=== PATIENT | female | born 1985 | race Caucasian/White ===

== ENCOUNTER 2019-04-17 18:03 | Observation (INO) | payer BC, SELFPAY ==
[2019-04-17 18:04] VITALS: BP 111/70; PULSE 89; RESP 18; TEMP 36.7; O2SAT 98; BMI 27.1
--- NOTE | 2019-04-17 18:34 | CT_ITS ---
We are attempting to reach an attending provider to discuss findings. An addendum with communication details will be sent when the communication is complete. STUDY: CT ABDOMEN AND PELVIS WITH CONTRAST REASON FOR EXAM: Female, 33 years old. Right lower quadrant pain RADIATION DOSAGE (If Supplied By Facility): DLP = ( 1245.90 ) mGycm TECHNIQUE: Transaxial images were obtained from the dome of the diaphragm to the symphysis pubis without oral contrast. 100 ml of Isovue 300 contrast was administered. Sagittal and coronal images were reconstructed. Individualized dose optimization techniques were used for this CT. COMPARISON: None. FINDINGS: The visualized lung bases are clear. The visualized portions of the heart and pericardium are within normal limits. There are no calcified gallstones present. The liver is within normal limits. There are no suspicious hepatic lesions. The spleen is normal in size. The pancreas is within normal limits. The adrenal glands are within normal limits. There are no obstructing renal stones. There is a left renal upper pole 2 mm stone and left renal midpole 3 mm stone. There is no hydronephrosis. There are no focal renal lesions. Normal visualized stomach. There is no bowel obstruction or inflammation. The appendix is increased in diameter, measuring 1.1 cm in diameter. There is appendiceal wall thickening and adjacent inflammatory changes. There is no evidence of rupture. The aorta is normal in caliber. There is no abdominal or pelvic free air, fluid collection or lymphadenopathy. Mild free fluid is present. There are no destructive osseous lesions. CT/Abdomen/Pelvis W IV Cont ONLY IMPRESSION: Acute appendicitis without evidence of rupture. Nonobstructing left renal stones. Mild free fluid. Electronically Signed: Fernando Gamez, at 20:29 EST Tel , Service support ,
[2019-04-17] MEDS: 0.9% Normal Saline 1,000 ML 1000 ML IV (19:03)
[2019-04-17 19:17] LABS: Absolute Lymphocyte Count 2.37 X10^3/uL (0.83-4.51); Absolute Neutrophil Count 11.1 X10^3/uL (2.0-7.7); Basophil# 0.04 X10^3/uL; Basophil% 0.3 % (0-1); Eosinophil# 0.05 X10^3/uL; Eosinophils% 0.3 % (0-5); Hematocrit 36.4 % (37-47); Hemoglobin 12.6 g/dL (12.0-15.0); Lymphocyte # 2.37 X10^3/ul (4.0); Lymphocyte % 16.3 % (19-41); Mean Corp Hgb Conc 34.6 g/dL (32-36); Mean Corpuscular Hgb 29.4 pg (27.0-32.0); Mean Corpuscular Volume 84.8 fL (81-99); Mean Platelet Vol. 9.3 fl (6.2-12.0); Monocyte# 0.97 X10^3/uL; Monocyte% 6.7 % (0-10); NRBC Flagged by Analyzer 0 % (0-5); Neutrophil # 11.05 X10^3/uL (2.7-7.7); Neutrophil % 76.1 % (47-70); Platelet Count 226 K/mm3 (150-450); RBC Distribution Width CV 11.8 % (11.6-14.6); Red Blood Count 4.29 M/mm3 (4.2-5.4); White Blood Count 14.5 K/mm3 (4.4-11.0)
[2019-04-17 19:18] LABS: Bacteria 0 SEEN /hpf (None Seen); Mucous, Urine 0 SEEN /hpf (<or=2+); Red Blood Cells-Urine 0 SEEN /hpf (0-5)
[2019-04-17 19:19] LABS: ALB/GLOB Ratio 1.1 RATIO (0.9-2.4); AST(SGOT) 7 U/L (15-37); Alanine Aminotransfer ALT/SGPT 15 U/L (13-56); Albumin, Serum 4.1 g/dL (3.2-5.0); Alkaline Phosphatase 57 U/L (45-117); Anion Gap 6 (5-15); BUN 11 mg/dL (7-18); BUN/Creat Ratio 15.9 RATIO (10-20); Calcium,Total 9.1 mg/dL (8.5-10.1); Chloride 105 mmol/L (98-107); Creatinine, Serum 0.69 mg/dL (0.55-1.02); EST Glomerular Filtration Rate 105 mL/min (>60); Est Glom Filt Rate - Afr Amer 127 mL/min (>60); Estimated Creatinine Clearance 93.43 ml/min; Globulin 3.7 g/dL (2.2-4.2); Glucose 91 mg/dL (74-106); Lipase 77 U/L (73-393); Potassium 3.2 mmol/L (3.5-5.1); Protein, Total 7.8 g/dL (6.4-8.2); Sodium Level 140 mmol/L (136-145)
[2019-04-17 19:22] LABS: Color, Urine Yellow (Yellow); Glucose, Dipstick Normal (Normal); Ketone-Dipstick Negative (Negative); Leukocyte Esterase-Dipstick 25 /ul (Negative); Nitrite-Dipstick Negative (Negative); Occult Blood-Urine Negative /ul (Negative); Protein-Dipstick Negative (Negative); Urine Bilirubin Dipstick Negative (Negative); Urine Clarity Sl. Cloudy (Clear); Urine Urobilinogen Normal (Normal)
[2019-04-17 19:29] LABS: Internal QC Validated? YES +Cl - CLEAR BKGD; Pregnancy, Urine Negative Negative
[2019-04-17 19:33] LABS: Squamous Epithelial Cells - UA 0-5 SEEN /hpf (5-10); White Blood Cells 0-5 SEEN /hpf (0-5)
[2019-04-17 20:32] VITALS: BP 97/61; PULSE 68; RESP 15; O2SAT 98
--- NOTE | 2019-04-17 20:42 | ED.VISSUMM ---
- ER Visit Summary Date of Service: 04/17/19 Chief Complaint: Abdominal pain History of Present Illness: The patient is a 33 F with abdominal pain that started yesterday. It was diffuse and then moved to her right lower quadrant. It is worse with bending and moving. She felt a little lightheaded today. Last oral intake was around 2 PM today. No history of abdominal surgery. She does have a history of ovarian cysts, and this feels similar. Physical Examination: Afebrile and vital signs unremarkable. Alert and oriented. No acute distress. Heart regular. Lungs clear. Right lower quadrant and right pelvis tender to palpation. No guarding or rebound. Skin appears normal. Test Results: White count 14.5, potassium 3.2, hepatic and lipase unremarkable. Urinalysis unremarkable. hCG is negative. CT abdomen and pelvis showed acute appendicitis without complication. Emergency Department Course and Treatment: Patient declined pain medicine. Work-up was consistent with acute appendicitis. She was treated with Zosyn. She is stable on reevaluation. Surgery was contacted for further care. Treatment Plan: As above Disposition: Admission Impression: Acute appendicitis This note was generated with [employer] dictation software. It may contain incorrect words, spelling, and punctuation that were not noted in review of the chart prior to signing ED Disposition - Plan for ED Patient: Referrals: Jenny Garcia MD [Primary Care Provider] -
--- NOTE | 2019-04-17 21:40 | PCM.HP.STD ---
Problem List (1) Acute appendicitis Status: Acute Qualifiers: Acute appendicitis type: with localized peritonitis Appendicitis perforation presence: without perforation Appendicitis abscess presence: without abscess History of Present Illness Date of Admission: 04/17/19 The patient is a 33 year old F who became ill yesterday with generalized abdominal pain. I been contacted by emergency room Dr Gonzalez to assume care of the patient. Patient's primary care physician is in the [place]. The patient's got an elevated white count of 14.5 with a hemo-12.6 hematocrit 36.4 platelet count 226,000. Left shift with 76% neutrophils. CT scan demonstrates a markedly inflamed appendix measuring 1.1 cm in diameter. There is free fluid noted. There is periappendiceal stranding. They do not at this point see free rupture.. She has not had any abdominal surgery. Past Medical History Allergies No Known Allergies Allergy (Verified 04/17/19 18:07) Home Medications: Ambulatory Orders Medication Instructions Recorded Ibuprofen 400 mg PO DAILY PRN PRN 04/17/19 Smoking Status: Never smoker Review of Systems Constitutional: Denies: Anorexia HEENT: Denies: Difficulty Swallowing Respiratory: Denies: Cough Gastrointestinal: Reports: Abdominal Pain VTE Information - Inpt Only VTE Present on Admission: No Patient Problems: Active and Suspected Problems Acute appendicitis (Acute) - Physical Exam Vitals/I&O's: Vital Signs Temp Pulse Resp BP Pulse Ox 98.0 F 68 15 97/61 98 04/17/19 18:04 04/17/19 20:32 04/17/19 20:32 04/17/19 20:32 04/17/19 20:32 Oxygen Delivery Method Room Air Weight: 148 lb Body Mass Index (BMI) 27.1 Intake and Output for Last 24 Hours 04/15/19 04/16/19 04/17/19 23:59 23:59 23:59 Intake Total 1000 / 1000 Balance 1000 / 1000 General: Alert, Oriented x3, Cooperative, No apparent distress HEENT: Atraumatic Oral: Moist Mucosa Neck: Supple Lungs: Clear to auscultation, Normal air movement Cardiovascular: Regular rate, Regular Rhythm Abdomen: Soft, Hypoactive Bowel Sounds, Tender, - - Tender to palpation with guarding right lower quadrant Extremities: No Calf Tenderness Neurological: - - Cognition intact Psych/Mental Status: Normal Affect Laboratory Results 04/17/19 18:47: WBC 14.5 H, RBC 4.29, Hgb 12.6, Hct 36.4 L, MCV 84.8, MCH 29.4, MCHC 34.6, RDW Std Deviation 36.0, RDW Coeff of Jannie 11.8, Plt Count 226, MPV 9.3, Immature Gran % (Auto) 0.300, Neut % (Auto) 76.1 H, Lymph % (Auto) 16.3 L, [place] % (Auto) 6.7, Eos % (Auto) 0.3, Baso % (Auto) 0.3, Absolute Neuts (auto) 11.1 H, Absolute Lymphs (auto) 2.37, Nucleated RBC % 0 04/17/19 18:47: Sodium 140, Potassium 3.2 L, Chloride 105, Carbon Dioxide 29.0, Anion Gap 6, BUN 11, Creatinine 0.69, Estim Creat Clear Calc 93.43, Est GFR (MDRD) Af Amer 127, Est GFR (MDRD) Non-Af 105, BUN/Creatinine Ratio 15.9, Glucose 91, Calcium 9.1, Total Bilirubin 0.60, AST 7 L, ALT 15, Alkaline Phosphatase 57, Total Protein 7.8, Albumin 4.1, Globulin 3.7, Albumin/Globulin Ratio 1.1, Lipase 77 04/17/19 19:10: Urine Test Negative 04/17/19 19:10: Urine Color Yellow, Urine Clarity Sl. Cloudy, Urine pH 6.0, Ur Specific [place] 1.010, Urine Protein Negative, Urine Glucose (UA) Normal, Urine Ketones Negative, Urine Occult Blood Negative, Urine Nitrite Negative, Urine Bilirubin Negative, Urine Urobilinogen Normal, Ur Leukocyte Esterase 25 H, Urine RBC 0 SEEN, Urine WBC 0-5 SEEN, Ur Squamous Epith Cells 0-5 SEEN, Urine Bacteria 0 SEEN, Urine Mucus 0 SEEN Assessment/Plan All Active Problems Acute appendicitis (Acute) 33-year-old female with acute severe appendicitis markedly inflamed with periappendiceal stranding and fluid in the pelvis. Patient is initiated on IV Zosyn. I recommended the patient a laparoscopic appendectomy with possible conversion to an open technique if indicated. She is aware of the technique, benefits, risks, alternatives. She has a very lax abdomen. We will proceed as or timing permits. Mars Au M.D., F.A.C.S.
--- NOTE | 2019-04-17 21:44 | DCINST_ITS ---
<Mars Au - Last Filed: 04/17/19 21:44> Discharge Diet: Light diet - advance as tolerated - if you have questions about your diet instructions, please talk to you doctor. Discharge Activity: May Not Drive - for 3-5 days or while taking narcotic pain medicine. May shower in (days): 1 Lifting Restrictions: 10 pounds Call your doctor if your incision/area has: Continuous Slow Oozing, Sudden Increased Bleeding, Increased Pain/ Swelling, Increased Redness, Foul Smelling Discharge Call your doctor if you observe: Fever of 101 or Higher Suture Line Care: Avoid Pulling/Pushing, Avoid Pinching/Bending Additional Dressing/Incision Instructions:: Change or remove dressing in 4 days. Leave steri-strips in place for 1 week. Allergies/Adverse Reactions: Allergies No Known Allergies Allergy (Verified 04/17/19 18:07) Medications to take at Discharge Ibuprofen 400 mg PO DAILY PRN PRN 04/17/19 Hydrocodone Bitart/Apap 5-325 [[place] 5/325] 1 tablet PO Q6H PRN PRN 3 Days #9 tablet 04/18/19 The following prescriptions were given: Hydrocodone Bitart/Apap 5-325 [[place] 5/325] 1 tablet PO Q6H PRN PRN 3 Days #9 tablet PRN Reason: Pain Score 1-5/10 Transmission Status: Sent to [facility] Primary Care Physician: Jenny Garcia MD [Primary Care Provider] - Test Results: Test results from this visit will be discussed in further detail at your follow- up appointment, if applicable. Please Follow Up With: Mars Au MD - [phone] When: Call to make an appointment to be seen in about 10 days. <Sonia Lenz - Last Filed: 04/18/19 12:11> Test Results: Test results from this visit will be discussed in further detail at your follow- up appointment, if applicable. Proposed Discharge Date: 04/18/19
[2019-04-17 21:50] VITALS: BP 97/61; PULSE 68; RESP 15; TEMP 36.7; O2SAT 98; BMI 27.1
[2019-04-17] MEDS: fentaNYL 100 MCG/2 ML Ampul 50 MCG IV (22:01)
[2019-04-17] MEDS: LORazepam 2 MG/ML Syringe 0.5 MG IV (22:01)
[2019-04-17 22:18] VITALS: BP 97/61; PULSE 68; RESP 18; TEMP 36.7; O2SAT 97
--- NOTE | 2019-04-17 22:30 | APP_PTH ---
PATIENT: SHELLY MOFFETT LOC: MS2 U#:[id number] AGE/SX: 33/F ROOM: MS213 RE04/17/[address]: Dr. Mars Au MD : 1985 BED: 1 DIS: 04/18/2019 SPEC #: [id number] RECD: 04/18/19 09:03 STATUS: LEILANI REJennifer #: [id number] JO-ANN: 04/17/19 22:[address]: Mars Au DEPT: SURGICAL PATHOLOGY RECD BY: Marquez Francois ENTERED: 04/18/19 11:34 SP TYPE: APPENDIX OTHR DR: Dr. Jenny Garcia MD Tissues: Appendix, NOS Procedures: Surgery Specimen Level III HEADER OPERATION: Laparoscopic appendectomy PRE-OP DIAGNOSIS: Acute appendicitis TISSUE SUBMITTED: Appendix MICROSCOPIC DIAGNOSIS Appendix, appendectomy: Acute necrotizing appendicitis. Acute serositis. AM:pete 04/19/19 MICROSCOPIC DESCRIPTION Slides are reviewed. GROSS DESCRIPTION Received is one container labeled with the patient's name and designated appendix. The specimen consists of a C-shaped appendix measuring 6.5 cm in length and up to 1 cm in diameter. The attached periappendiceal adipose tissue measures 2 cm in width. The serosa is congested and focally covered with bartholomew, purulent exudate. No obvious perforation is identified. The mucosa is congested and hemorrhagic. No fecalith is identified. Verification Rep sections are submitted in one cassette. / SJ:pete 04/18/19 TC:2 CPT: 59838
[2019-04-17] MEDS: Bupivacaine Mpf 0.5% 30 ML VIAL (23:22)
--- NOTE | 2019-04-17 23:28 | PCM.OPRPT ---
Problem List (1) Acute appendicitis Status: Acute Qualifiers: Acute appendicitis type: with localized peritonitis Appendicitis perforation presence: without perforation Appendicitis abscess presence: without abscess Report of Operation Date of Procedure: 04/17/19 Pre-Operative Diagnosis: Acute appendicitis with localized peritonitis Post-Operative Diagnosis: Same Surgery/Procedure Performed:: Laparoscopic appendectomy Description of Surgical Findings:: Timeout and informed consent was obtained. 33-year-old female was taken the operating placement table underwent general endotracheal intubation anesthesia. Therapeutic Zosyn was administered in the emergency room. The abdomen sterilely prepped and draped. 0.5% Marcaine was used as local anesthetic. Skin sites were pre-anesthetized. Total 30 cc was used. A vertical infraumbilical incision was created sharp dissection carried down through the subtenons tissue the peritoneum was identified directly opened a telemeter trocar was inserted the abdomen was insufflated with CO2 to a pressure of 10 mmHg pressure no evidence of any trocar injuries 5-minute trochars were placed suprapubically in the low mid abdomen acute appendicitis with wrapping of the omentum around the inflamed appendix was identified. A small amount of peritoneal fluid that was clear. A window was made in the mesoappendix. A 45 Bah stain right stapler was used to transect and secured the appendix flush with the cecal base. The mesoappendix was transected with a vascular height stapler. Hemostasis was intact. The appendix was placed in a retrieval bag. It was exited at the umbilicus. The remaining trochars removed under visualization. The abdomen was allowed to deflate of the CO2. The fascia at the umbilicus approximated for grade suture of 0 Vicryl. Skin edges approximate interrupted 4 Monocryl subdermal stitches. Steri-Strips Telfa and OpSite dressings applied. Sponge and instrument and needle counts were reported the surgeon be correct. Blood loss minimal. Specimen appendix. Drains none. Blood loss minimal. Mars Au M.D., F.A.C.S. Type of Anesthesia:: General, Local Anesthesiologist: Alex Mckeon
[2019-04-17 23:54] VITALS: BP 97/61; BP 97/78; PULSE 96; RESP 16; TEMP 36.3; O2SAT 92
[2019-04-18] VITALS (8 sets, daily range): BP systolic 91–106; BP diastolic 48–74; PULSE 61–77; RESP 16–18; TEMP 36.6–36.8; O2SAT 96–99; BMI 27.3
[2019-04-18] MEDS: Lactated Ringers 1,000 ML 100 ML IV (00:23)
[2019-04-18] MEDS: Acetaminophen 325 MG Tablet 650 MG PO (04:48)
--- NOTE | 2019-04-18 05:21 | NURSING ---
Pt sat at the edge of the bed and dangled legs. Assisted Pt to the bathroom. Pt unable to void at this time. Pt returned to bed-tolerated well. Head of bed elevated. Provided jello. SCD's applied. Encouraged IS.
--- NOTE | 2019-04-18 06:01 | PN.SURG_ITS ---
Patient Problems: Active and Suspected Problems Acute appendicitis (Acute) Subjective: Patient is doing satisfactory is subsequent to lap scopic appendectomy. Some gas cramps. She has not voided yet. She states that this was a problem after her delivery as well - Physical Exam Vitals/I&O's: Vital Signs Temp Pulse Resp BP Pulse Ox 98.3 F 65 16 91/51 L 97 04/18/19 04:42 04/18/19 04:42 04/18/19 04:42 04/18/19 04:42 04/18/19 04:42 Oxygen Delivery Method Room Air Weight: 149 lb 6 oz Body Mass Index (BMI) 27.3 Intake and Output for Last 24 Hours 04/16/19 04/17/19 04/18/19 23:59 23:59 23:59 Intake Total 1000 / 1000 100 / 100 Balance 1000 / 1000 100 / 100 Abdomen: Bowel Sounds Present, Soft, Distended Laboratory Results 04/17/19 18:47: WBC 14.5 H, RBC 4.29, Hgb 12.6, Hct 36.4 L, MCV 84.8, MCH 29.4, MCHC 34.6, RDW Std Deviation 36.0, RDW Coeff of Jannie 11.8, Plt Count 226, MPV 9.3, Immature Gran % (Auto) 0.300, Neut % (Auto) 76.1 H, Lymph % (Auto) 16.3 L, [place] % (Auto) 6.7, Eos % (Auto) 0.3, Baso % (Auto) 0.3, Absolute Neuts (auto) 11.1 H, Absolute Lymphs (auto) 2.37, Nucleated RBC % 0 04/17/19 18:47: Sodium 140, Potassium 3.2 L, Chloride 105, Carbon Dioxide 29.0, Anion Gap 6, BUN 11, Creatinine 0.69, Estim Creat Clear Calc 93.43, Est GFR (MDRD) Af Amer 127, Est GFR (MDRD) Non-Af 105, BUN/Creatinine Ratio 15.9, Glucose 91, Calcium 9.1, Total Bilirubin 0.60, AST 7 L, ALT 15, Alkaline Phosphatase 57, Total Protein 7.8, Albumin 4.1, Globulin 3.7, Albumin/Globulin Ratio 1.1, Lipase 77 04/17/19 19:10: Urine Test Negative 04/17/19 19:10: Urine Color Yellow, Urine Clarity Sl. Cloudy, Urine pH 6.0, Ur Specific [place] 1.010, Urine Protein Negative, Urine Glucose (UA) Normal, Urine Ketones Negative, Urine Occult Blood Negative, Urine Nitrite Negative, Urine Bilirubin Negative, Urine Urobilinogen Normal, Ur Leukocyte Esterase 25 H, Urine RBC 0 SEEN, Urine WBC 0-5 SEEN, Ur Squamous Epith Cells 0-5 SEEN, Urine Bacteria 0 SEEN, Urine Mucus 0 SEEN Current Medications Acetaminophen (Tylenol) 650 mg PO Q6H PRN PRN PRN Reason: pain Last Admin: 04/18/19 04:48 Dose: 650 mg Documented by: Hydrocodone Bitart/Acetaminophen ([place] 5mg-325mg) 1 - 2 tablet PO Q6H PRN PRN PRN Reason: Pain Score 1-5/10 Enoxaparin Sodium (Lovenox) 40 mg SC DAILY@0600 MAXIMO Lactated Ringer's () 1,000 mls @ 100 mls/hr IV .Q10H MAXIMO Last Admin: 04/18/19 00:23 Dose: 100 mls/hr Documented by: Sodium Chloride () 250 mls @ 15 mls/hr IV .[id number] PRN PRN Reason: Saline Flush Morphine Sulfate () 2 - 4 mg IV Q1H PRN PRN PRN Reason: Pain Score 1-10/10 Ondansetron HCl (Zofran) 4 mg IV Q8H PRN PRN PRN Reason: Nausea Sodium Chloride () 10 - 40 ml IV UD PRN PRN Reason: SALINE FLUSH Medical Necessity - Tobacco Use Smoking Status: Never smoker Tobacco Use: Non-smoker Assessment/Plan All Active Problems Acute appendicitis (Acute) Patient appears to have some gas cramps causing some discomfort and some distention. She has not yet voided. I encouraged mobilization. Hopefully home later today.
[2019-04-18] MEDS: Enoxaparin 40 MG/0.4 ML Syringe SC (06:36)
[2019-04-18] MEDS: 0.9% Saline Lock 10 ML Syringe IV (06:41)
[2019-04-18] MEDS: HYDROcodone Bitartrate/Apap 5/325 Tablet PO (10:11)
--- NOTE | 2019-04-18 12:12 | PCM.PN.BLA ---
Progress Note Patient evaluated resting comfortably in bed. She notes minimal amount of incisional pain. Denies nausea, vomiting. She has passed flatus. Patient ready for discharge. STROKE Vital Signs/Narrative: Vital Signs Temp Pulse Resp BP Pulse Ox 04/18/19 10:02 98.0 F 72 18 103/48 L 99
== END 2019-04-18 12:31 | disposition home or self-care (01) ==
LOC: ED 18:54 → SDC 21:26 → AC 21:27 → MS2 22:14
PROVIDERS: Admitting Provider Surgery; Emergency Provider Emergency Medicine; Family Provider Family Medicine; PCP Family Medicine; Visit Provider Surgery
PROC: 0DTJ4ZZ Resection of Appendix, Percutaneous Endoscopic Approach (ICD-10-PCS; CPT 44970; principal; 2019-04-17 22:30)
DX: K35.21 Acute appendicitis with generalized peritonitis, with abscess (principal)
CPT/HCPCS: 44970; 74177; 80053; 81001; 81025; 83690; 85025; 88304; 96361; 96365; 96372; 96375; 99218; 99251; 99284; J7030; J7120; Q9967; A4216; G0378; G0463; J2405

== ENCOUNTER 2021-06-09 21:30 | Outpatient (CLI) | payer BC, SELFPAY ==
[2021-06-09 21:40] LABS: Absolute Lymphocyte Count 2.09 X10^3/uL (0.83-4.51); Absolute Neutrophil Count 4.5 X10^3/uL (2.0-7.7); Basophil# 0.02 X10^3/uL; Basophil% 0.3 % (0-1); Eosinophil# 0.13 X10^3/uL; Eosinophils% 1.8 % (0-5); Hematocrit 37.8 % (37-47); Hemoglobin 12.8 g/dL (12.0-15.0); Lymphocyte # 2.09 X10^3/ul (0.83-4.51); Lymphocyte % 28.6 % (19-41); Mean Corp Hgb Conc 33.9 g/dL (32-36); Mean Corpuscular Hgb 28.8 pg (27.0-32.0); Mean Corpuscular Volume 84.9 fL (81-99); Mean Platelet Vol. 9.2 fl (6.2-12.0); Monocyte# 0.53 X10^3/uL; Monocyte% 7.3 % (0-10); NRBC Flagged by Analyzer 0 % (0-5); Neutrophil # 4.52 X10^3/uL (2.7-7.7); Neutrophil % 61.7 % (47-70); Platelet Count 288 K/mm3 (150-450); RBC Distribution Width CV 11.5 % (11.6-14.6); RBC Distribution Width SD 35.7 fl (35.1-43.9); Red Blood Count 4.45 M/mm3 (4.2-5.4); White Blood Count 7.3 K/mm3 (4.4-11.0)
[2021-06-09 22:03] LABS: ALB/GLOB Ratio 1.1 RATIO (0.9-2.4); AST(SGOT) 14 U/L (15-37); Alanine Aminotransfer ALT/SGPT 26 U/L (13-56); Albumin, Serum 4.1 g/dL (3.2-5.0); Alkaline Phosphatase 56 U/L (45-117); Anion Gap 6 (5-15); BUN 14 mg/dL (7-18); BUN/Creat Ratio 20.7 RATIO (10-20); CRP < 2.90 mg/L (0.0-3.0); Calcium,Total 9.5 mg/dL (8.5-10.1); Chloride 103 mmol/L (98-107); Creatinine, Serum 0.68 mg/dL (0.55-1.02); EST Glomerular Filtration Rate 106 mL/min (>60); Est Glom Filt Rate - Afr Amer 128 mL/min (>60); Globulin 3.7 g/dL (2.2-4.2); Glucose 91 mg/dL (74-106); Potassium 3.8 mmol/L (3.5-5.1); Protein, Total 7.8 g/dL (6.4-8.2); Sodium Level 141 mmol/L (136-145); T4 Total, Thyroxin 11.1 ug/dL (4.8-13.9); Uric Acid 3.6 mg/dL (2.6-6.0)
[2021-06-12 09:08] LABS: ANTINUCLEAR ANTIBODIES DIRECT Positive (Negative); Anti-Centromere B Ab <0.2 AI (0.0-0.9); Anti-Chromatin <0.2 AI (0.0-0.9); Anti-Jo <0.2 AI (0.0-0.9); Anti-Scleroderma-70 AB <0.2 AI (0.0-0.9); RNP Ab <0.2 AI (0.0-0.9); SJOGREN'S Anti-SS-A test < 0.2 AI (0.0-0.9); SJOGREN'S Anti-SS-B test 0.5 AI (0.0-0.9); Smith Ab <0.2 AI (0.0-0.9)
[2021-06-12 11:09] LABS: Anti-dsDNA Ab 10 IU/mL (0-9)
== END 2021-06-09 23:59 | disposition short-term general hospital (02) ==
PROVIDERS: PCP Family Medicine; Referring Provider Nurse Practitioner; Visit Provider Nurse Practitioner
DX: D64.9 Anemia, unspecified (principal); R59.1 Generalized enlarged lymph nodes; M25.50 Pain in unspecified joint; A69.20 Lyme disease, unspecified; R22.1 Localized swelling, mass and lump, neck
CPT/HCPCS: 80053; 84436; 84443; 84550; 85025; 86038; 86140; 86225; 86235

== ENCOUNTER 2021-06-22 15:08 | Outpatient (CLI) | payer BC, SELFPAY ==
--- NOTE | 2021-06-22 | FLU_PTH ---
[id number] AGE/SX: 35/F ROOM: RE06/22/[address]: Dr. Александр Trevizo MD : 1985 BED: DIS: 06/22/2021 SPEC #: [id number] RECD: 06/22/21 15:03 STATUS: LEILANI GUERA #: [id number] JO-ANN: 06/22/21 00:[address]: Александр Trevizo DEPT: CYTOLOGY RECD BY: Jeovany Bui ENTERED: 06/23/21 09:21 SP TYPE: Fluid OTHR DR: Michelle Jarquin Tissues: A - Thyroid gland, NOS B - Thyroid gland, NOS C - Thyroid gland, NOS D - Thyroid gland, NOS E - Thyroid gland, NOS F - Thyroid gland, NOS Procedures: Special Stain Group II Surgery Specimen Level IV Cytospin Fluid HEADER OPERATION: Bilateral thyroid nodules, fine needle aspiration PRE-OP DIAGNOSIS: Bilateral multiple thyroid nodules TISSUE SUBMITTED: A - Right thyroid nodule fluid, B - Right thyroid nodule x5 slides, C - Left upper thyroid nodule fluid, D - Left upper thyroid nodule, x4 slides, E - Left lower thyroid nodule fluid, F - Left lower thyroid nodule x4 slides DIAGNOSIS CYTOLOGY A. Right thyroid nodule fluid, FNA (cytospin and cell block): Consistent with benign follicular nodule. Adequate for evaluation. B. Right thyroid nodule, FNA (smears): Consistent with benign follicular/colloid nodule. Adequate for evaluation. See comment. C. Left upper thyroid nodule fluid, FNA (cytospin and cell block): Acellular specimen. D. Left upper thyroid nodule, FNA (smears): Consistent with benign follicular/colloid nodule. Adequate for evaluation. E. Left lower thyroid nodule fluid, FNA (cytospin and cell block): Consistent with benign follicular/colloid nodule with cystic changes. Adequate for evaluation. F. Left lower thyroid nodule, FNA (smears): Consistent with benign follicular/colloid nodule with cystic changes. Adequate for evaluation. SJ:pete 06/24/2021 COMMENT B. The findings may represent adenomatoid nodule. Correlation with clinical, radiologic findings and appropriate follow up are necessary. CYTOLOGY STUDY Slides are reviewed. CYTOLOGY GROSS A - Received is 20 ml of red cloudy fluid labeled with the patient's name and and designated per the requisition as right thyroid nodule. Submitted for cytology preparation including cell block. B - Received are 5 smears labeled with the patient's name and designated per the requisition as right thyroid nodule. Submitted for staining. C - Received is 5 ml of red cloudy fluid labeled with the patient's name and and designated per the requisition as left upper thyroid nodule. Submitted for cytology preparation including cell block. D - Received are 4 smears labeled with the patient's name and designated per the requisition as left upper thyroid nodule. Submitted for staining. E - Received is 10 ml of red cloudy fluid labeled with the patient's name and and designated per the requisition as left lower thyroid nodule. Submitted for cytology preparation including cell block. F - Received are 4 smears labeled with the patient's name and designated per the requisition as left lower thyroid nodule. Submitted for staining. / pete 06/23/2021 TC:5 CPT: 08188 x3, 48605 x6
== END 2021-06-22 23:59 | disposition short-term general hospital (02) ==
LOC: LABSPEC 15:09
PROVIDERS: Visit Provider Surgery
DX: E04.2 Nontoxic multinodular goiter (principal)
CPT/HCPCS: 88108; 88305; 88313

== ENCOUNTER 2021-08-10 08:42 | Outpatient (CLI) | payer BC, SELFPAY | END 2021-08-10 23:59 | disposition home or self-care (01) | PROVIDERS: PCP Nurse Practitioner; Referring Provider Surgery; Visit Provider Surgery | DX: R00.2 Palpitations (principal) | CPT/HCPCS: 93005 ==

== ENCOUNTER 2021-08-20 12:53 | Observation (INO) | payer BC, SELFPAY ==
[2021-08-20] VITALS (13 sets, daily range): BP systolic 93–122; BP diastolic 45–77; PULSE 73–108; RESP 16–18; TEMP 36.3–37.3; O2SAT 91–99; BMI 32.2
--- NOTE | 2021-08-20 | IMM_PTH ---
PATIENT: SHELLY MOFFETT LOC: 3 U#:[id number] AGE/SX: 35/F ROOM: [facility] RE08/20/[address]: Dr. Александр Trevizo MD : 1985 BED: 1 DIS: 08/21/2021 SPEC #: [id number] RECD: 08/24/21 14:45 STATUS: LEILANI REQ #: [id number] JO-ANN: 08/20/21 00:[address]: Александр Trevizo DEPT: IMMUNOHISTOCHEMISTRY RECD BY: Wanda Tee ENTERED: 08/24/21 14:46 SP TYPE: IMMUNO OTHR DR: Michelle Jarquin, GREEN PIPEFITTER-C Tissues: Thyroid gland, NOS Procedures: HBME (initial) CD56 (add) CK19 (add) GAL-3 (add) PHYSICIAN & INSTITUTION [place] [id number] SPECIMEN INFORMATION: Tissue Source: Thyroid Clinical Info: Multinodular goiter Specimen Number: [id number] #12 CPT code: 91568, 95196 x2 METHODOLOGY: Deparaffinized sections of prefer/formalin-fixed tissue or PAP/DQ stained slides are incubated with monoclonal/polyclonal antibodies/oligonucleotide probes. Localization is made via biotin free immunoperoxidase method. Appropriate controls are performed and reacted as expected. Results on target cell population are indicated in the following table: RESULTS: ANTIBODY / CLONE RESULT Block 12 HBME1 (HBME-1) positive, focal CK19 (A53-B/A2.26) negative GAL3 (9C4) negative CD56 (123C3.D5) positive These tests were developed and their performance characteristics determined by [facility]. They may not have been cleared or approved by the U.S. Food and Drug Administration. The FDA has determined that such clearance or approval is not necessary. The above immunohistochemical/dualISH markers are ordered and reviewed by the Pathologist. INTERPRETATION: Thyroid, total thyroidectomy: Consistent with benign adenomatous nodule. AM:pete 08/25/2021
[2021-08-20 06:29] LABS: Internal QC Validated? YES +Cl - CLEAR BKGD; Pregnancy, Urine Negative Negative
[2021-08-20] MEDS: Lactated Ringers 1,000 ML 15 ML IV (06:57)
--- NOTE | 2021-08-20 07:30 | THYROID_PTH ---
PATIENT: SHELLY MOFFETT LOC: MS3 U#:[id number] AGE/SX: 35/F ROOM: [facility] [place] RE08/20/[address]: Dr. Александр Trevizo MD : 1985 BED: 1 DIS: 08/21/2021 SPEC #: [id number] RECD: 08/22/21 13:35 STATUS: LEILANI LYNNE #: [id number] JO-ANN: 08/20/21 07:[address]: Александр Trevizo DEPT: SURGICAL PATHOLOGY RECD BY: Shaun Hastings ENTERED: 08/23/21 08:04 SP TYPE: THYROID OTHR DR: Michelle Jarquin, CEMENT SPRAYER HELPER-C Tissues: Thyroid gland, NOS Procedures: Decalcification bone/plaque Surgery Specimen Level V HEADER OPERATION: Total thyroidectomy PRE-OP DIAGNOSIS: Multinodular goiter TISSUE SUBMITTED: Thyroid, suture hutchinson superior left lobe MICROSCOPIC DIAGNOSIS Thyroid, total thyroidectomy: Colloid nodules with focal adenomatous and degenerative change. Calcified and ossified nodule, benign. See comment. AM:pete 08/24/2021 COMMENT Immunohistochemistry ([id number]) supports the above diagnosis. Reference is made to the patient's previous right and left thyroid, fine needle aspirations ([id number]), in which changes consistent with benign follicular/colloid nodule were identified. Case has been reviewed in consultation with Dr. Prince who concurs with the above diagnosis. IDC:[email or web address] MICROSCOPIC DESCRIPTION Slides are reviewed. GROSS DESCRIPTION Received in fixative is one container labeled with the patient's name and designated thyroid, suture hutchinson superior left lobe. The specimen consists of a total thyroidectomy specimen weighing 89.7 gm. The specimen is oriented by a suture at the superior left lobe. The right lobe measures 7 x 4 x 3.5 cm and left lobe measures 6 x 4 x 3.5 cm and the isthmus measures 1 x 0.7 x 0.3 cm. The specimen is inked as follows: posterior surface right lobe, left lobe and isthmus - black, anterior surface right lobe - blue, anterior surface left lobe - green, anterior surface isthmus - yellow. No external parathyroid gland tissue is identified. Sections of the isthmus reveal a few smaller nodules, the largest measuring 0.5 cm in greatest dimension. Sections of the right lobe reveal multiple variable sized nodules, the largest measuring 3 cm in greatest dimension. The nodules show focal colloid surfaces with focal area of hemorrhage. Sections of the left lobe reveal a large colloid nodule measuring 4 cm in greatest dimension and multiple smaller nodules with colloidy cut surfaces. The superior portion of the left lobe also reveal a [place], calcified nodule measuring 1 cm in greatest dimension. Photography Editor sections are submitted in 15 cassettes as follows: 1 - isthmus, entirely submitted, 2-8 - right lobe, 9-15 - left lobe. Cassette 1 contains the entire smaller nodule with calcified cut surfaces submitted after decalcification, 10-15 - more sections left thyroid lobe. Each cassette also contains the largest nodule including smaller nodules. / SJ:pete 08/23/2021 TC:1 CPT: 40442, 11412
--- NOTE | 2021-08-20 07:33 | HP.PCM_ITS ---
History and Physical Date of Admission: 08/20/21 Date of Service: 08/05/21 MR#:[id number]:[id number]: SHELLY MOFFETT [facility] #:[id number]:1985 Provider:Saqib Hardin/Sex: 35/F [facility] Int[facility] Intake Visit Reasons: Total Thyroidectomy Chief Complaint: discuss surgery Frit Mixer Required: No Is patient in pain?: No Allergies No Known Allergies Allergy (Verified 08/05/21 12:37) Medications Ibuprofen 400 mg PO DAILY PRN PRN 04/17/19 [History Confirmed 08/05/21] alprazolam 0.25 mg tablet tablet PO 06/22/21 [History Confirmed 08/05/21] lactobacillus combination no.9 4 billion cell capsule PO 06/22/21 [History Confirmed 08/05/21] hydroxychloroquine 200 mg tablet 200 mg PO BID #60 tab 06/28/21 [Rx Confirmed 08/05/21] Is last menstrual period known: No Post menopausal: No Patient : No PFSH Medical History (Updated 08/05/21 @ 14:[address] Александр Trevizo MD) Acute appendicitis Anxiety and depression Lupus Thyroid nodule Surgical History (Updated 08/05/21 @ 12:38 by Jessi Navarro) S/P thyroid biopsy (~05/2021) Status post laparoscopic appendectomy (~04/17/19) Family History Mother Lupus Hypertension Father Hypertension Social History Smoking Status: Never smoker HPI HPI HPI: SHELLY MOFFETT, is a 35 F who presents to the office today for bilateral thyroid nodules. They are referred for surgical consultation from Michelle Jarquin NP. This patient's third surgical consultation. During her first surgical consultation she underwent FNA biopsy of the 3 thyroid nodules designated right, left upper, and left lower on 06/22/2021. Final cytopathology is reported [place] 1 consistent with benign colloid/follicular nodule for all nodules biopsied. She then presented with her significant other to discuss possible management options. While she stated she was leaning towards a surgical option, she wasn't completely decided. Therefore, we discussed things with a follow-up phone call and she declared she was decided on surgery but wanted to meet once more to discuss surgical details. Today she confirms that she is experiencing the same symptoms and that they are no worse than before. She references a recent time with hanging curtains being uncomfortable and states that she feels like things are closing up. She initially described this as a shortness of breath, but revised her description. She has several questions related to surgery including how thyroid hormone may interact with any current and future medications and whether or not she requires additional workup because of her history of intermittent palpitations. Below is recapitulated from patient's initial surgical consultation regarding her experience with thyroid nodules: They do experience difficulty with swallowing. Patient states this is particularly the case when she tilts her head down. She also experiences some rather new difficulty with swallowing medication capsules. They do complain of a new cough which has been present for roughly last month. She initially attributed this to a cold, but the cough has persisted. She states her children tested negative for Covid but she never tested herself. Along with this, the patient notes some shortness of breath that is not merely exertional and can be brought on with talking for extended periods of time. They do not appreciate new voice changes. They do not have a history of snoring/sleep apnea. Additionally, their weight has been steadily increasing and they do not have a clear explanation as the cause because activity and diet are relatively the same. Patient estimates she has gained approximately 30 pounds since spring 2020. There is a longstanding history of fatigue. However the patient complains of exacerbation of a difficulty with concentration and has found herself accidentally running red lights because she is so distracted. They do not have a history of heat or cold intolerance. Other symptoms include: Anxiety and constipation. Patient states that her anxiety has gotten to the point where she gets panicky just having to be somewhere on time. This is also accompanied with a twisting of her stomach. She believes that the introduction of hydroxychloroquine?recently prescribed for her lupus?has exacerbated this problem. They do have a family history of thyroid disorders or endocrinopathies on the maternal side. Patient states that her great- grandmother and maternal uncle both had thyroid nodules. There is no personal history of prior radiation exposure. Previous work-up has included thyroid ultrasound. This ultrasound demonstrated a right thyroid lobe measuring 7.4 x 3.3 x 3.7 cm and a left lobe measuring 7.2 x 3.7 x 3.1 cm. The isthmus was of normal thickness at 0.4 cm. 3 main nodules were highlighted. On the right there was a 5.3 x 2.8 x 4.4 cm nodule. This was described a TI-RADS 3 rating for solid composition and isoechoic echogenicity. On the left there is a 4.5 x 2.7 x 3.5 cm nodule. This was also given a TI-RADS 3 rating for solid composition and isoechoic echogenicity. Lastly there is a second nodule on the left that measured 1.0 x 0.8 x 0.8 cm. The official read on this was a TI-RADS 3 nodule however this must of been an area as radiology did give points for solid composition, undeterminable echogenicity, and echogenic foci in the way of microcalcifications. Therefore that would make this a TI-RADS 4 nodule. An FNA has not been performed. Other tests include: TSH of 0.4 and T4 of 11.1 (06/09/2021) ROS General General: Yes weight change and fatigue; No appetite, colon cancer, breast cancer or weakness HEENT HEENT: Yes difficulty swallowing; No eye injury, eye surgery, swollen glands or hoarseness Endo Endocrine: No thyroid disease, diabetes mellitus, thyroid cancer, Hair loss, heat intolerance or cold intolerance Musc Musculoskeletal: No back problems, arthritis, rheumatoid arthritis, gout or joint pain Cardio Cardiovascular: No murmur, pacemaker, heart disease, atrial fibrillation, high blood pressure, heart attack, heart stent, palpitations, shortness of breat with exertion or chest pain Psych Psychiatric: Yes depression and anxiety; No hearing voices Resp Respiratory: Yes shortness of breath, No sleep apnea, Yes cough, No COPD, No asthma, No emphysema and No wheezing Gastro Gastrointestinal: No abdominal pain, No nausea or vomiting, No diarrhea, No constipation, No blood in stool, No acid reflux, No hemorrhoids, No ulcers, No gallbladder problem and No black,tarry stools Rubén Hematologic: No blood thinners, No blood disorders, No bleeding, No anemia and No blood clots Neuro Neurologic: No weakness Exam Const General: cooperative, healthy appearing, comfortable and no acute distress Orientation: alert, awake and oriented x3 Neck Thyroid: diffusely enlarged and nontender Cardio Rate: regular rate Rhythm: regular rhythm Heart Sounds: S1 normal and S2 normal Assessment and Plan Assessment and Plan (1) Palpitations: Status: Acute Comment: Patient w subjective history of intermittent (far from consistent) palpitations who is under preoperative evaluation for total thyroidectomy. Given these reports and the need for the procedure to be done under general anesthesia, I am ordering an EKG to assess for any arrhythmias, although by patient's own admission these are paroxysmal in onset Orders: Orders: EKG - [facility] [place] Today Plan - Dr. Александр Trevizo MD: Outpatient EKG (2) Multiple thyroid nodules: Status: Acute Comment: This is a 35-year-old female with recently diagnosed multinodular goiter. During her history, she complains of a number of compressive/mass-effect symptoms. Fine-needle aspiration was performed on the 3 most prominent nodules 06/22/2021 and all have returned as adequate for evaluation and consistent with benign follicular nodule. Despite the benign pathology, the patient states she is still bothered by these nodules whenever she does any activity overhead?particular at work. We discussed in detail that she would require a total thyroidectomy if we were to pursue surgery to give her the best chance of relieving her compressive symptoms. I explained that this would be associated with a small risk of hypoparathyroidism as well as discussed the risk of injury or palsy to the recurrent laryngeal nerves. I also explained that this would mean lifelong thyroid hormone supplementation and probable temporary calcium supplementation. This was again reviewed with patient and she wishes to move forward with surgery. We will plan to schedule sometime in the next two weeks and get a preoperative EKG in the interim as discussed above for subjective history of palpitations. We did cover that patient should expect one overnight observation following her surgery as well as medication expectations with weight-based thyroid hormone and empiric calcium supplementation. She expressed understanding of all this information and offers no additional questions. Plan - Dr. Александр Trevizo MD: Total thyroidectomy with intraoperative nerve monitoring to be scheduled in next couple of weeks. Will plan for overnight observation following surgery. I have re-examined the patient. There are no clinical changes since date of exam. Neither patient nor her significant other have any questions and are prepared to proceed as previously discussed. Again, we will plan for an overnight observation to monitor patient's surgical wound as well as her postoperative calcium levels.
[2021-08-20] MEDS: Bupivacaine 0.25% 30 ML Vial (12:30)
--- NOTE | 2021-08-20 12:58 | OP.PCM_ITS ---
Report of Operation Date of Procedure: 08/20/21 Pre-Operative Diagnosis: Multinodular goiter with compressive symptomology Post-Operative Diagnosis: Same Surgery/Procedure Performed:: 1. Total thyroidectomy with intraoperative nerve monitoring 2. Autotransplantation of right superior parathyroid gland into strap muscle Description of Surgical Findings:: ?Visually intact recurrent laryngeal nerves bilaterally ?Disrupted vascular pedicle of the right superior parathyroid gland required reimplantation ?Grossly intact left superior parathyroid gland Surgeon: Александр Trevizo hydraulic jack mechanic: Mars Au hydraulic jack mechanic: Bing Etienne Type of Anesthesia: General/Supplemental Anesthesiologist: Quan Velez Specimen's removed: Thyroid Drains: Not applicable Estimated Blood Loss (mL): 100 Description of Procedure: After appropriate identification in the preoperative holding area, the patient was brought to the operating room where she was positioned supine with arms tucked taking care to pad the ulnar nerve bilaterally. Induction of general endotracheal anesthetic was begun and a NIMS tube was placed under glidescope view to confirm coaptation with the vocal cords anteriorly. Tube was then secured and the patient was positioned with a shoulder roll so that her head was in extension but supported. The Nims electrodes were placed and connected to the monitor. Tapping at the level of the cricoid produced a graphical representation of the impulse on the monitor. Patient's neck was then prepped and draped in usual sterile fashion and a formal timeout was conducted with those present. The lowest skin fold to the sternal notch was selected for incision site (this resided approximately 1 and half fingerbreadths cephalad to the notch). An incision was extended for 2-1/2 cm on either side of midline initially, but required further extension by approximately 1.5 cm on either side, later in the procedure. Electrocautery was used to deepen this incision through the level of the platysma. Subplatysmal flaps were raised with the use of electrocautery and blunt dissection. The strap muscles were then divided along the medial raphe bringing us down to the level of the thyroid. Capsular attachments to the thyroid were divided with the use of LigaSure or bluntly swept away with a peanut sponge. Retractors were placed providing visualization of the superior pole of the right lobe of the thyroid. The vessels of the superior pole were sequentially ligated with the use of the LigaSure device. As we moved towards the thyroid gland away from the pole vessels, we visualized the superior parathyroid gland. We then moved inferiorly and divided those polar vessels with LigaSure. The inferior parathyroid gland was grossly visualized and preserved with this division. With the poles freed the thyroid was mobilized medially by bluntly the remaining strap muscle fibers from the thyroid capsule and using LigaSure to divide the middle thyroid vein. While retracting the thyroid medially, we inadvertently disrupted a posterior lateral colloid nodule that resulted in some bleeding and required application of manual pressure as well as Surgicel to provide hemostasis so that the areas of critical anatomy could be visualized. Blunt dissection parallel to the presumed course of the recurrent laryngeal nerve was used to expose the tracheoesophageal groove. Here I encountered a positive signal for the right recurrent laryngeal nerve and was shortly thereafter able to visualize the nerve. The nerve positively identified, I began carefully dissecting off the remaining tracheal attachments around the area of the nerve. In doing so I encountered a second structure with a nerve appearance, however, this ultimately appeared to terminate within the thyroid parenchyma and this was tied with a 3-0 silk ligature and divided sharply. During this dissection, I did lose consistent signal from the nerve and therefore attempted to identify the signal in the carotid sheath at the vagus nerve. The carotid sheath was sharply opened and the carotid was bluntly swept laterally as dissection was carried down to the level of the vagus nerve. The amplitude was advanced to 2 mA on the Nims monitor. Unfortunately, this did not result in a signal either. At this point I became suspicious for monitor dysfunction and requested assistance from my partner Dr. Au. He graciously obliged and arrived to the room to assist. Together, we were able to carefully remove the remaining attachments of the right thyroid lobe from around the nerve using fine blunt dissection and tying attachments that were particularly close to this nerve. As we performed this dissection it became apparent that the patient's right superior pole parathyroid vascular pedicle had been disrupted and the parathyroid was attached to a right upper pole thyroid nodule. I made the decision to sharply remove the parathyroid gland from the nodule and asked that it was placed on a wetted Telfa gauze for later reimplantation. We reexamined the area of the nerve and could see it fully intact entering the cricothyroid joint. Once the right thyroid lobe was elevated at least 2 to 3 mm anterior to the insertion point, electrocautery was used to remove the isthmus from the anterior surface of the trachea. There did not appear to be a delphian node when the isthmus was examined superiorly. We then moved to removal of the left thyroid lobe with a similar technique taking care to remove the strap muscles from their capsular attachments to the lobe. The superior pole vessels were taken in like fashion with use of LigaSure energy. The inferior pole vessels and middle thyroid vein were also divided in this fashion. Finger fracture was used to remove the remaining attachments of the strap muscles to the thyroid capsule. At the superior pole there was some adherent adipose tissue and a france structure that appeared to represent the left superior pole parathyroid. Based on this gross identification, this packet of tissue?including the parathyroid- was removed from the superior pole capsule with fine blunt dissection. The parathyroid appeared well vascularized followin g the separation. As the thyroid was medialized and removed from the surgical bed, there was a vascular structure anteriorly along the trachea that was initially left intact until we were able to definitively visualize the left recurrent nerve in a more standard position along the tracheoesophageal groove. Vasa nervosa were seen along this nerve and it was left undisturbed. Additional fine blunt dissection was used to remove the remaining thyroid attachments to the trachea at the ligament of Azul and this thyroid tissue was divided with the use of LigaSure energy device. Again, once we were 2 to 3 mm away from the area of the nerve insertion, the gland was removed from the trachea with the use of electrocautery. Our final specimen was marked with a 3-0 silk stitch through the left upper pole and passed off the field for pathologic processing. Both surgical cavities were inspected for hemostasis; closer to the nerve there was some additional oozing and Surgicel hemostatic agent was placed bilaterally while pressure was applied. Once this pressure was relieved, the surgical cavity was again inspected and we found hemostasis to be intact. Satisfied with this result, the strap muscles were closed with a running 3-0 Vicryl stitch leaving a small gap at the inferior aspect of the suture line. [place] along its closure, I dissected off the fascia from the sternohyoid muscle and made two pockets in the muscle belly using blunt dissection. The right superior parathyroid gland was then brought onto the field and was sharply minced into smaller pieces. This volume was halved, and these parathyroid pieces were placed into these pockets of the muscle belly. A medium vascular clip was used to seal these pockets closed. The platysmal flaps were closed with interrupted 3-0 Vicryl. Some additional local anesthetic was infiltrated throughout the dermis and the skin was closed in a subcuticular fashion using 4-0 Monocryl. Steri-Strips were applied. Telfa and Tegaderm were used as a dressing. The patient was then awakened from anesthetic without event and was taken to PACU for ongoing recovery. Complications None Admit VTE Documentation VTE Present on Admission: No VTE Mechan Device Prophylaxis: SCD's VTE Pharm Prophylaxis ordered?: No Procedures Endocrine CF Procedures [id number]: [id number] Removal of thyroid
[2021-08-20 13:43] LABS: PTHIN 8.2 pg/mL (18.4-80.1)
[2021-08-20] MEDS: 0.9% Normal Saline 1,000 ML 125 ML IV ×2 (14:28→21:54)
[2021-08-20] MEDS: Ibuprofen 400 MG Tablet PO ×2 (16:10→23:16)
[2021-08-20] MEDS: Calcium Carb/Vitamin D 1 TABLET Tablet PO (16:11)
[2021-08-20] MEDS: Calcitriol 0.25 MCG Capsule 0.5 MCG PO (17:44)
[2021-08-20] MEDS: Acetaminophen 500 MG Tablet PO (18:55)
[2021-08-21] MEDS: 0.9% Normal Saline 1,000 ML 125 ML IV (04:36)
[2021-08-21] MEDS: Levothyroxine 137 MCG Tablet PO (04:44)
[2021-08-21] MEDS: Ibuprofen 400 MG Tablet PO ×2 (04:45→11:05)
[2021-08-21 04:54] VITALS: BP 97/60; PULSE 79; RESP 16; TEMP 36.6; O2SAT 97
[2021-08-21 07:06] LABS: Calcium,Total 7.5 mg/dL (8.5-10.1)
[2021-08-21 08:29] VITALS: BP 104/57; PULSE 81; RESP 16; TEMP 36.7; O2SAT 99
[2021-08-21] MEDS: Calcium Carb/Vitamin D 1 TABLET Tablet PO ×2 (08:32→11:08)
[2021-08-21] MEDS: Calcitriol 0.25 MCG Capsule 0.5 MCG PO (08:32)
--- NOTE | 2021-08-21 08:37 | PCM.PN.SRG ---
Subjective Subjective Patient seen and examined during AM rounds. She reports that overall she is feeling well. She still has a bit of a raspy voice and sore throat. However, she confirms that she is having a better time of swallowing her medications.She describes some mild tingling of her fingertips only when moving them. Objective Data Objective Data Vital Signs: Vital Signs Temp Pulse Resp BP Pulse Ox 98.1 F 81 16 104/57 L 99 08/21/21 08:29 08/21/21 08:29 08/21/21 08:29 08/21/21 08:29 08/21/21 08:29 Oxygen Flow Rate (L/min) 10 Oxygen Delivery Method Room Air Weight: 176 lb 5.917 oz Body Mass Index (BMI) 32.2 Intake & Output: Intake and Output for Last 24 Hours 08/19/21 08/20/21 08/21/21 23:59 23:59 23:59 Intake Total 3290.67 / 3290.67 837.5 / 837.5 Balance 3290.67 / 3290.67 837.5 / 837.5 Lab / Micro Data Labs: Laboratory Results - last 24 hr 08/20/21 13:22: PTH Intact 8.2 L 08/21/21 05:26: Calcium 7.5 L Physical Exam Const no apparent distress Neck Neck Narrative: Normal postoperative appearance with minimal strikethrough drainage to the patient's operative dressing. Steri-Strips intact. Patient's periincisional tissues remain soft. Appropriately tender to palpation. Resp normal respiratory effort Assessment & Plan Assessment/Plan (1) Status post total thyroidectomy: PLAN: Patient postoperative day 1 from total thyroidectomy for multinodular goiter with compressive symptomology.She is recovering well with improving voice quality. She describes some mild tingling of her fingertips but her calcium is low at 7.5 mg/dL.Will approve advancement of her diet, as well as plan to increase her calcium to an additional 500 mg x 1.Patient advised to take a Tums or calcium tablets should she feel any tingling at home.We reviewed postoperative wound instructions. Patient will follow up with me in 1 week. Charges/Coding Visit Charges Inpatient E&M: 23354 Subs Hosp L2
--- NOTE | 2021-08-21 09:01 | DCINST_ITS ---
Discharge Instructions Diet Discharge Diet: Soft diet Activity Discharge Activity: May Not Drive (While it is difficult to turn head to check blind spots) May shower in (days): 1 Ice area for (Minutes): 20 Lifting Restrictions: No lifting greater than 15 pounds for 2 weeks after surgery Dressing / Incision Call your doctor if your incision/area has: Sudden Increased Bleeding, Increased Pain/ Swelling, Increased Redness, Foul Smelling Discharge and Swelling at the incision site Remove Dressing in: leave in place till F/U Cleanse incision/area with: Soap & Water Follow Up Care Please Follow Up With: Александр Trevizo MD When: 1 week postop Test Results: Test results from this visit will be discussed in further detail at your follow-up appointment, if applicable. Discharge Plan Admission Admit Date/Time: 08/20/21 12:53 Primary Reason for Your Visit: Total thyroidectomy Attending Provider: Александр Trevizo Primary Care Provider: Michelle Jarquin NP Instructions Patient Instructions: Thyroidectomy Post Op, After Thyroid Surgery, Thyroidectomy Dc Discharge Orders/Prescriptions Prescriptions: New levothyroxine 137 mcg Tablet 137 mcg PO 0600 35 Days Qty: 35 RF: 0 calcitriol 0.25 mcg Capsule 0.5 mcg PO DAILY 28 Days Qty: 56 RF: 0 calcium carbonate-vitamin D3 [Oyster Shell Calcium-Vit D3] 500 mg-5 mcg (200 unit) Tablet 1 tab PO 4X/DAY 28 Days Qty: 112 RF: 0 Continued alprazolam 0.25 mg tablet 0.25 mg PO DAILY PRN (Reason: premenstrual) RF: 0 Ibuprofen 200 MG tablet 400 mg PO DAILY PRN PRN (Reason: Pain Score 1-10/10) RF: 0 acetaminophen 325 mg Tablet 325 mg PO Q6H RF: 0 Midol 500-25 mg Tablet 2 tab PO Q6H PRN (Reason: PMS) RF: 0 polyethylene glycol 3350 [Miralax] 17 gram/dose Powder 17 g PO DAILY RF: 0 hydroxychloroquine 200 mg tablet 200 mg PO BID RF: 0 Referrals / Follow Up: Michelle Jarquin NP, [employer] ENGINEER[employer] [Primary Care Provider] - Disposition Disposition (needs filled in before D/C Order can be placed): Home, Self Care
--- NOTE | 2021-08-21 09:09 | PCM.DC.SUM ---
Providers Date of Admission: 08/20/21 Primary Care Physician: UMAIR Lemos Reason For Visit: TOTAL THYROIDECTOMY Diagnosis Discharge Diagnosis (1) Status post total thyroidectomy: Status: Acute Code(s): E89.0 - Postprocedural hypothyroidism Medications at Discharge Home Medications Ibuprofen 400 mg PO DAILY PRN PRN 04/17/19 alprazolam 0.25 mg tablet 0.25 mg PO DAILY PRN 06/22/21 Midol 2 tab PO Q6H PRN 08/13/21 acetaminophen 325 mg PO Q6H 08/13/21 hydroxychloroquine 200 mg PO BID 08/13/21 polyethylene glycol 3350 [Miralax] 17 g PO DAILY 08/13/21 calcitriol 0.5 mcg PO DAILY 28 Days #56 cap 08/21/21 calcium carbonate-vitamin D3 [Oyster Shell Calcium-Vit D3] 1 tab PO 4X/DAY 28 Days #112 tab 08/21/21 levothyroxine 137 mcg PO 0600 35 Days #35 tab 08/21/21 Hospital Course Operations - (total thyroidectomy) Summary of Care Provided Hospital Course: Patient was admitted for observational stay following total thyroidectomy on 08/20/2021. Her recovery went uneventfully and she was discharged as planned on 08/21/2021 with prescriptions for calcium, calcitriol (due to some postoperative hypoparathyroidism) as well as thyroid supplementation. Wound care instructions were reviewed. Patient to follow-up with me in the outpatient clinic in 1 week. Weight / BMI Weight Weight: 176 lb 5.917 oz Body Mass Index (BMI) 32.2 ABG / Lab / Microbiology Data Laboratory: Laboratory Results - last 24 hr 08/20/21 13:22: PTH Intact 8.2 L 08/21/21 05:26: Calcium 7.5 L D/C Instructions Discharge Diet: Soft diet May shower in (days): 1 Ice area for (Minutes): 20 Call your doctor if your incision/area has: Sudden Increased Bleeding, Increased Pain/ Swelling, Increased Redness, Foul Smelling Discharge and Swelling at the incision site Cleanse incision/area with: Soap & Water Please Follow Up With: Александр Trevizo MD When: 1 week postop Meaningful Use Info Meaningful Use Diagnoses (Choose all that apply): None applicable Discharge Plan Admission Admit Date/Time: 08/20/21 12:53 Primary Reason for Your Visit: Total thyroidectomy Attending Provider: Александр Trevizo Primary Care Provider: Michelle Jarquin NP Instructions Patient Instructions: Thyroidectomy Post Op, After Thyroid Surgery, Thyroidectomy Dc Discharge Orders/Prescriptions Prescriptions: New levothyroxine 137 mcg Tablet 137 mcg PO 0600 35 Days Qty: 35 RF: 0 calcitriol 0.25 mcg Capsule 0.5 mcg PO DAILY 28 Days Qty: 56 RF: 0 calcium carbonate-vitamin D3 [Oyster Shell Calcium-Vit D3] 500 mg-5 mcg (200 unit) Tablet 1 tab PO 4X/DAY 28 Days Qty: 112 RF: 0 Continued alprazolam 0.25 mg tablet 0.25 mg PO DAILY PRN (Reason: premenstrual) RF: 0 Ibuprofen 200 MG tablet 400 mg PO DAILY PRN PRN (Reason: Pain Score 1-10/10) RF: 0 acetaminophen 325 mg Tablet 325 mg PO Q6H RF: 0 Midol 500-25 mg Tablet 2 tab PO Q6H PRN (Reason: PMS) RF: 0 polyethylene glycol 3350 [Miralax] 17 gram/dose Powder 17 g PO DAILY RF: 0 hydroxychloroquine 200 mg tablet 200 mg PO BID RF: 0 Referrals / Follow Up: Michelle Jarquin NP, [employer] [Primary Care Provider] - Disposition Disposition (needs filled in before D/C Order can be placed): Home, Self Care
[2021-08-21 12:15] VITALS: BP 96/48; PULSE 95; RESP 16; TEMP 36.7; O2SAT 98
[2021-08-23 09:40] LABS: PTHIN < 6.3 pg/mL (18.4-80.1)
== END 2021-08-21 13:05 | disposition home or self-care (01) ==
LOC: MS3 14:47
PROVIDERS: Anesthesiology; Admitting Provider Surgery; PCP Nurse Practitioner; Referring Provider Surgery; Visit Provider Surgery
PROC: (CPT 60240; principal; 2021-08-20 07:15)
DX: E04.2 Nontoxic multinodular goiter (principal); M32.9 Systemic lupus erythematosus, unspecified; R06.02 Shortness of breath; R00.2 Palpitations; E89.0 Postprocedural hypothyroidism; Z79.899 Other long term (current) drug therapy; F41.9 Anxiety disorder, unspecified; F32.A Depression, unspecified
CPT/HCPCS: 60240; 60512; 00320; 36415; 81025; 82310; 83970; 88307; 88311; 88341; 88342; 99218; J7030; J7120; G0378; J2405; J3490

== ENCOUNTER 2021-08-27 08:08 | Outpatient (CLI) | payer BC, SELFPAY ==
[2021-08-27 08:40] LABS: Calcium,Total 9.7 mg/dL (8.5-10.1)
[2021-08-27 14:00] LABS: PTHIN 2.4 pg/mL (18.4-80.1)
== END 2021-08-27 23:59 | disposition home or self-care (01) ==
LOC: PAVLAB 08:09
PROVIDERS: PCP Nurse Practitioner; Referring Provider Surgery; Visit Provider Surgery
DX: E89.2 Postprocedural hypoparathyroidism (principal); E89.0 Postprocedural hypothyroidism
CPT/HCPCS: 36415; 82310; 83970

== ENCOUNTER 2021-09-10 10:10 | Outpatient (CLI) | payer BC, SELFPAY ==
[2021-09-10 11:28] LABS: PTHIN 15.3 pg/mL (18.4-80.1)
== END 2021-09-10 23:59 | disposition home or self-care (01) ==
LOC: PAVLAB 10:11
PROVIDERS: PCP Nurse Practitioner; Referring Provider Surgery; Visit Provider Surgery
DX: E89.2 Postprocedural hypoparathyroidism (principal)
CPT/HCPCS: 36415; 82310; 83970

== ENCOUNTER → 2021-09-24 | Outpatient (CLI) | payer BC, SELFPAY ==
[2021-09-24 15:04] LABS: PTHIN 30.4 pg/mL (18.4-80.1)
[2021-09-24 15:13] LABS: Calcium,Total 9.2 mg/dL (8.5-10.1); Free T3 1.8 pg/mL (2.18-3.98); Thyroid Stim Hormone (TSH) 3.93 uIU/mL (0.358-3.74)
== END | disposition home or self-care (01) ==
PROVIDERS: PCP Nurse Practitioner; Visit Provider Surgery
DX: E89.2 Postprocedural hypoparathyroidism (principal); E89.0 Postprocedural hypothyroidism
CPT/HCPCS: 36415; 82310; 83970; 84436; 84443; 84481

== ENCOUNTER → 2021-10-30 | Outpatient (CLI) | payer BC, SELFPAY ==
[2021-10-30 11:19] LABS: Calcium,Total 8.9 mg/dL (8.5-10.1); T4 Total, Thyroxin 15.7 ug/dL (4.8-13.9)
[2021-11-01 07:54] LABS: PTHIN 31.6 pg/mL (18.4-80.1)
== END | disposition home or self-care (01) ==
LOC: LAB 10:14
PROVIDERS: PCP Nurse Practitioner; Referring Provider Surgery; Visit Provider Surgery
DX: E89.0 Postprocedural hypothyroidism (principal); E89.2 Postprocedural hypoparathyroidism
CPT/HCPCS: 36415; 82310; 83970; 84436; 84443; 84480

== ENCOUNTER → 2021-12-30 | Outpatient (CLI) | payer BC, SELFPAY ==
[2021-12-30 17:43] LABS: Calcium,Total 8.8 mg/dL (8.5-10.1); Free T3 1.8 pg/mL (2.18-3.98); T4 Total, Thyroxin 10.9 ug/dL (4.8-13.9); Thyroid Stim Hormone (TSH) 4.78 uIU/mL (0.358-3.74)
[2021-12-31 07:59] LABS: PTHIN 24.4 pg/mL (18.4-80.1)
== END | disposition home or self-care (01) ==
LOC: LAB 15:22
PROVIDERS: PCP Nurse Practitioner; Referring Provider Surgery; Visit Provider Surgery
DX: E89.0 Postprocedural hypothyroidism (principal); E89.2 Postprocedural hypoparathyroidism
CPT/HCPCS: 36415; 82310; 83970; 84436; 84443; 84481

== ENCOUNTER → 2022-02-11 | Outpatient (CLI) | payer BC, SELFPAY | END | disposition home or self-care (01) | PROVIDERS: PCP Nurse Practitioner; Referring Provider Nurse Practitioner; Visit Provider Nurse Practitioner | DX: E03.9 Hypothyroidism, unspecified (principal) | CPT/HCPCS: 84443 ==

== ENCOUNTER 2022-04-14 21:31 | Outpatient (CLI) | payer BC, SELFPAY ==
[2022-04-14 22:21] LABS: ALB/GLOB Ratio 1.2 RATIO (0.9-2.4); AST(SGOT) 21 U/L (15-37); Alanine Aminotransfer ALT/SGPT 23 U/L (13-56); Albumin, Serum 4.1 g/dL (3.2-5.0); Alkaline Phosphatase 54 U/L (45-117); Anion Gap 5 (5-15); BUN 10 mg/dL (7-18); BUN/Creat Ratio 12.1 RATIO (10-20); Calcium,Total 8.8 mg/dL (8.5-10.1); Chloride 104 mmol/L (98-107); Creatinine, Serum 0.82 mg/dL (0.55-1.02); EST Glomerular Filtration Rate 84 mL/min (>60); Est Glom Filt Rate - Afr Amer 102 mL/min (>60); Globulin 3.4 g/dL (2.2-4.2); Glucose 99 mg/dL (74-106); Potassium 3.4 mmol/L (3.5-5.1); Protein, Total 7.5 g/dL (6.4-8.2); Sodium Level 139 mmol/L (136-145); Thyroid Stim Hormone (TSH) 1.96 uIU/mL (0.358-3.74)
== END 2022-04-14 23:59 | disposition home or self-care (01) ==
PROVIDERS: PCP Nurse Practitioner; Visit Provider Nurse Practitioner
DX: E03.9 Hypothyroidism, unspecified (principal); E04.2 Nontoxic multinodular goiter
CPT/HCPCS: 80053; 84443

== ENCOUNTER → 2022-07-12 | Outpatient (CLI) | payer BC, SELFPAY ==
[2022-07-12 22:53] LABS: Thyroid Stim Hormone (TSH) 9.42 uIU/mL (0.358-3.74)
== END | disposition home or self-care (01) ==
PROVIDERS: PCP Nurse Practitioner; Visit Provider Nurse Practitioner
DX: E03.9 Hypothyroidism, unspecified (principal)
CPT/HCPCS: 84443

== ENCOUNTER → 2022-09-16 | Outpatient (CLI) | payer BC, SELFPAY ==
[2022-09-16 20:43] LABS: Thyroid Stim Hormone (TSH) 3.18 uIU/mL (0.358-3.74)
== END | disposition home or self-care (01) ==
PROVIDERS: PCP Nurse Practitioner; Visit Provider Nurse Practitioner
DX: E03.9 Hypothyroidism, unspecified (principal)
CPT/HCPCS: 84443

== ENCOUNTER → 2022-12-16 | Outpatient (CLI) | payer BC, SELFPAY ==
[2022-12-16 21:05] LABS: Hemoglobin A1c 5.1 % (3.8-5.6)
== END | disposition home or self-care (01) ==
PROVIDERS: PCP Nurse Practitioner; Referring Provider Nurse Practitioner; Visit Provider Nurse Practitioner
DX: E03.9 Hypothyroidism, unspecified (principal); E89.2 Postprocedural hypoparathyroidism; R63.5 Abnormal weight gain
CPT/HCPCS: 83036

== ENCOUNTER → 2022-12-20 | Outpatient (CLI) | payer BC, SELFPAY ==
[2022-12-20 22:49] LABS: ALB/GLOB Ratio 1.1 RATIO (0.9-2.4); AST(SGOT) 15 U/L (15-37); Alanine Aminotransfer ALT/SGPT 25 U/L (13-56); Albumin, Serum 3.9 g/dL (3.2-5.0); Alkaline Phosphatase 63 U/L (45-117); Anion Gap 5 (5-15); BUN 10 mg/dL (7-18); BUN/Creat Ratio 13.3 RATIO (10-20); Calcium,Total 8.7 mg/dL (8.5-10.1); Chloride 104 mmol/L (98-107); Creatinine, Serum 0.75 mg/dL (0.55-1.02); EST Glomerular Filtration Rate 93 mL/min (>60); Est Glom Filt Rate - Afr Amer 113 mL/min (>60); Globulin 3.6 g/dL (2.2-4.2); Glucose 70 mg/dL (74-106); Potassium 3.4 mmol/L (3.5-5.1); Protein, Total 7.5 g/dL (6.4-8.2); Sodium Level 139 mmol/L (136-145); T4 Free Direct 1.19 ng/dL (0.76-1.46); Thyroid Stim Hormone (TSH) 0.48 uIU/mL (0.358-3.74)
== END | disposition home or self-care (01) ==
PROVIDERS: PCP Nurse Practitioner; Visit Provider Nurse Practitioner
DX: E03.9 Hypothyroidism, unspecified (principal); E89.2 Postprocedural hypoparathyroidism
CPT/HCPCS: 80053; 84439; 84443

== ENCOUNTER → 2023-08-17 | Outpatient (CLI) | payer BC, SELFPAY ==
[2023-08-17 22:15] LABS: T4 Free Direct 1.13 ng/dL (0.76-1.46); Thyroid Stim Hormone (TSH) 5.96 uIU/mL (0.358-3.74)
[2023-08-19 04:08] LABS: Thyroid Peroxidase AB < 9 IU/mL (0-34)
== END | disposition home or self-care (01) ==
PROVIDERS: PCP Nurse Practitioner; Visit Provider Nurse Practitioner
DX: E89.2 Postprocedural hypoparathyroidism (principal)
CPT/HCPCS: 84439; 84443; 86376

== ENCOUNTER → 2023-10-12 | Outpatient (CLI) | payer BC, SELFPAY ==
[2023-10-12 23:30] LABS: Thyroid Stim Hormone (TSH) 0.42 uIU/mL (0.358-3.74)
== END | disposition home or self-care (01) ==
PROVIDERS: PCP Nurse Practitioner; Referring Provider Nurse Practitioner; Visit Provider Nurse Practitioner
DX: E89.2 Postprocedural hypoparathyroidism (principal)
CPT/HCPCS: 84443